=== PATIENT | female | born 1940 | race Caucasian/White ===

== ENCOUNTER 2019-07-17 20:31 | Emergency (ER) | payer MEDICARE, OTHER ==
[2019-07-17 20:50] VITALS: BP 220/78
--- NOTE | 2019-07-17 20:56 | UC ---
Headache HPI - HPI Summary HPI Summary: 79 yo female presents with RIGHT ear pain. She tells me that earlier today she relaxing at home and developed severe right ear pain. She took her hearing aid out and that did not help. Pain has persisted since. She denies fever, chills, headache, dizziness, sinus symptoms, sore throat, or recent illness. Her BP is very high today, pt states she has a history of HTN, but has not been taking her lisinopril for about 3 months because her BP was "doing well". Denies SOB, chest pain, numbness, tingling. - History Of Current Complaint Chief Complaint: UCEar Stated Complaint: EAR PAIN, HIGH BP Time Seen by Provider: 07/17/19 20:55 Hx Obtained From: Patient Onset/Duration: Sudden Onset Currently Pain Is: Severe Pain Intensity: 10 Pain Scale Used: 0-10 Numeric - Allergies/Home Medications Allergies/Adverse Reactions: Allergies Allergy/AdvReac Type Severity Reaction Status Date / Time No Known Allergies Allergy Verified 07/17/19 20:50 Home Medications: Home Medications Lisinopril TAB* [Prinivil TAB*] 10 mg PO DAILY 07/17/19 [History Confirmed 07/17] PMH/Surg Hx/FS Hx/Imm Hx Cardiovascular History: Hypertension - Surgical History Surgical History: Yes Surgery Procedure, Year, and Place: bilateral ear surgery. right arm surgery - Family History Known Family History: Positive: Hypertension - Social History Lives: With Family Alcohol Use: None Substance Use Type: None Smoking Status (MU): Never Smoked Tobacco Review of Systems All Other Systems Reviewed And Are Negative: No Constitutional: Positive: Negative Skin: Positive: Negative Eyes: Positive: Negative ENT: Positive: Ear Ache Respiratory: Positive: Negative Cardiovascular: Positive: Negative Gastrointestinal: Positive: Negative Neurological: Positive: Negative Psychological: Positive: Negative Physical Exam - Summary Physical Exam Summary: GENERAL: NAD. WDWN. No pain distress. SKIN: No rashes, sores, lesions, or open wounds. HEENT: Head: AT/NC Eyes: EOM intact. Conjunctiva clear without inflammation or discharge. Ears: Hearing decreased b/l. RIGHT ear with moderate brown cerumen and ?plastic white FB within ear canal. TMs intact, no bulging, erythema, or edema. Nose: Nasal mucosa pink and moist. NTTP maxillary and frontal sinus. Throat: Posterior oropharynx without exudates, erythema, or tonsillar enlargement. Uvula midline. NECK: Supple. Nontender. No lymphadenopathy. No JVD or carotid bruit appreciated. CHEST: CTAB. No accessory muscle use. Breathing comfortably and in no distress. CV: RRR. Pulses intact. Cap refill <2seconds NEURO: Alert. PSYCH: Age appropriate behavior. Triage Information Reviewed: Yes Vital Signs: Initial Vital Signs Temp 98.7 F 07/17/19 20:43 Pulse 87 07/17/19 20:43 Resp 16 07/17/19 20:43 BP 220/78 07/17/19 20:43 Pulse Ox 98 07/17/19 20:43 Vital Signs Reviewed: Yes Headache Course/Dx - Course Course Of Treatment: White plastic hearing aid filter removed from right ear with alligator forceps. No change in pain. Given pt's abrupt onset of severe ear pain and very high BP today, I recommended that she go to the ER for further evaluation - pt was agreeable to this and will go there now. - Differential Dx/Diagnosis Provider Diagnosis: Ear pain, HTN (hypertension) Discharge ED - Sign-Out/Discharge Documenting (check all that apply): Patient Departure All imaging exams completed and their final reports reviewed: No Studies - Discharge Plan Condition: Stable Disposition: HOME-RECOMMEND TO ED Referrals: No Primary Care Phys,NOPCP [Primary Care Provider] - Additional Instructions: Please go to the ER for your elevated blood pressure - Billing Disposition and Condition Condition: STABLE Disposition: Home-Recommend to ED - Attestation Statements Provider Attestation: Chart reviewed. Pt not seen by me. I was available for consult. BARRY
== END 2019-07-17 21:32 | disposition home health service (06) ==
LOC: UCCORT 20:31
DX: H92.01 Otalgia, right ear (principal); I10 Essential (primary) hypertension; Z79.899 Other long term (current) drug therapy
CPT/HCPCS: 99203; G0463